=== PATIENT | female | born 1950 | race Caucasian/White ===

== ENCOUNTER → 2022-07-12 | Outpatient (CLI) | payer MEDICARE, MEDICAID ==
[~2022-07-12] MED LIST: BENADRYL ALLERG25 M2 PO; DESYREL 100MG100 MG PO; LANTUS SOLOS100 U/ML SQ; LIPITOR 80MG80 MG PO
== END ==
LOC: MC.RAD 13:45
DX: Z12.31 Encounter for screening mammogram for malignant neoplasm of breast (principal)

== ENCOUNTER 2023-05-26 06:27 | Day surgery (SDC) | payer MEDICARE, MEDICAID ==
[~2023-05-26] VITALS: Ht 157.5 cm; Wt 72.5 kg
[~2023-05-26 06:27] MED LIST changes: +Ondansetron 4 MG/2 ML VIAL IV PRN
[2023-05-26] MEDS ORDERED: LR 1,000 ML IV ONE (06:45)
[2023-05-26 07:01] VITALS: BP 151/91; PULSE 86; TEMP 97.5
[2023-05-26] MEDS ORDERED: KAPSPARGO SPRIN25 MG PO (07:34)
[2023-05-26] MEDS ORDERED: JARDIANCE10 (07:35)
[2023-05-26] MEDS ORDERED: ASPIRIN 81M81 MG/TA2 PO (07:35)
[2023-05-26] MEDS ORDERED: ASHWAGANDHA500 MG PO (07:36)
[2023-05-26] MEDS ORDERED: COLACE 100100 MG/CAP PO (07:36)
[2023-05-26] MEDS ORDERED: MAGNESIUM ELEM300 MG PO (07:37)
[2023-05-26] MEDS ORDERED: REPATHA SU140 MG/1 M SQ (07:37)
[2023-05-26] MEDS ORDERED: Lidocaine PF 2% (20 MG/ML) 5 ML VIAL ONE (07:41)
[2023-05-26 08:05] VITALS: BP 110/68; PULSE 85; TEMP 97.5
--- NOTE | 2023-05-26 08:05 | NUR ---
PATIENT AMBULATED TO CHAIR WITH STEADY GAIT, ASSIST OF 2. ALERT AND AWAKE. DENIES PAIN, NAUSEA AND SHORTNESS OF BREATH. BREATHING REGULAR AND UNLABORED ON ROOM AIR. SKIN WARM AND DRY. IV IN PLACE. NURSE HANDOFF COMPLETED IN ROOM. SEE CHART FOR VITAL SIGNS. PATIENT HAD WATER AND CHEESE. BOTH FOOD AND DRINK TOLERATED WELL. NO DYSPHAGIA. CALL LIGHT IN REACH.
[2023-05-26 08:15] VITALS: BP 113/61; PULSE 80
[2023-05-26 08:30] VITALS: BP 149/80; PULSE 80
[2023-05-26 08:39] VITALS: BP 131/84; PULSE 88
--- NOTE | 2023-05-26 08:50 | NUR ---
0829: DR. ESPINOZA MET WITH PATIENT IN ROOM TO DISCUSS PROCEDURE. 0835: DISCHARGE TEACHING COMPLETED WITH PRINTED EDUCATION AND INSTRUCTIONS SENT HOME WITH PATIENT. PATIENT VERBALIZED UNDERSTANDING OF TEACHING. 0841: IV REMOVED. GAUZE AND COBAN PLACED OVER SITE. 0850: PATIENT DISCHARGED HOME WITH [facility].
== END 2023-05-26 08:50 | disposition home or self-care (01) ==
LOC: SDCO 06:27
DX: K20.90 Esophagitis, unspecified without bleeding (principal); R13.10 Dysphagia, unspecified
CPT/HCPCS: J2704; J7120